=== PATIENT | female | born 1965 | race Caucasian/White ===

== ENCOUNTER → 2017-10-26 | Outpatient (CLI) | payer OTHER ==
[~2017-10-26] MED LIST: ASPI325T PO; SERT-129 PO
--- NOTE | 2017-10-26 09:52 | RADRPT ---
EXAM DATE: 10/26/2017 9:48 AM EDT AGE/SEX: 52 years / Female INDICATIONS: Left hip pain, denies injury CLINICAL DATA: This is the patient's initial encounter. Patient reports that signs and symptoms have been present for > 1 year and indicates a pain score of 7/10. MEDICAL/SURGICAL HISTORY: Arthritis. None. COMPARISON: No prior [facility] exams available for comparison. FINDINGS: Bony structures are intact and in normal alignment. Joints are intact without dislocation. Joint spa ce narrowing and osteophyte formation of the hip joints. Osseous density is normal. Soft tissues are unremarkable. No radiopaque foreign bodies seen. CONCLUSION: 1. Moderate bilateral hip osteoarthritis. 2. No acute fracture or dislocation. Electronically signed by: Anselmo Corley MD 10/26/2017 9:51 AM EDT
--- NOTE | 2017-10-26 10:20 | RADRPT ---
EXAM DATE: 10/26/2017 9:51 AM EDT AGE/SEX: 52 years / Female INDICATIONS: Right hip pain, injury CLINICAL DATA: This is the patient's initial encounter. Patient reports that signs and symptoms have been present for > 1 year and indicates a pain score of 10/10. MEDICAL/SURGICAL HISTORY: None. None. COMPARISON: No prior [facility] exams available for comparison. FINDINGS: Views of the right hip demonstrates moderate/severe osteoarthritic changes of the femoral head and ac etabulum. Femoral neck intact. No fracture or dislocation CONCLUSION: Moderate to severe osteoarthritis. No fracture. Electronically signed by: Brooks Pritchard MD 10/26/2017 10:19 AM EDT
== END ==
LOC: HRAD 09:19
PROVIDERS: ATTEND Family Medicine
DX: M25.551 Pain in right hip (principal); M25.552 Pain in left hip
CPT/HCPCS: 73502

== ENCOUNTER 2017-11-08 00:01 | Emergency (ER) | payer OTHER ==
[~2017-11-08] VITALS: Ht 167.6 cm; Wt 100.0 kg
[2017-11-08 00:35] VITALS: BP 125/78; PULSE 86; RESP 16; TEMP 97.7; O2SAT 97
--- NOTE | 2017-11-08 01:29 | PD ---
HPI Chief Complaint: Abdominal Pain Time Seen by Provider: 00:54 Travel History International Travel<30 days: No Contact w/Intl Traveler<30days: No Traveled to known affect area: No History of Present Illness HPI The patient is a 52 year old female who presents to the [facility] emergency department with a history of pelvic pain that she reports began 2 years ago. The patient reports that the pain has been diagnosed as related to osteoarthritis in bilateral hips. She reports that she has been told that she needs bilateral hip replacements done, however she is too young according to the orthopedist to have the procedure done yet. She reports that it makes her feel like she has pain down and her lower abdomen. She attributes this pain to her ovaries. She has up until a month ago been on supplemental estrogen due to postmenopausal flushing and hot flashes, however a month ago her primary care physician discontinued this. She has not seen a diet technician registered for the last 2 years. Her last menstrual cycle was at 48 years of age. She denies having any vaginal discharge or vaginal bleeding. She denies having any nausea or vomiting. She reports having chronic diarrhea for years. She reports that she has had a colonoscopy done a couple of years ago that had 2 polyps, however no other acute abnormality. She has had diverticulitis one time in the past. She reports that she moves her bowels 4 times per day. She denies any change in the frequency recently. She denies having any blood in her stool. She denies having any dysuria, hematuria, urinary urgency, or frequency. On review of systems otherwise, the patient denies having any known recent fevers, cough or congestion, neck pain, chest pain, shortness of breath, or neurologic symptoms [facility] Past Medical History Narrative Medical The patient's past medical history is significant for chronic pelvis pain, osteoarthritis involving bilateral hips, anxiety disorder, peripheral neuropathy , chronic low back pain, migraine headaches Arthritis: Yes (bilateral) ?: Not Past Surgical History Narrative Surgical The patient's past surgical history is significant for left foot surgery, C- section 1. Section: Yes Social History Alcohol Use: Yes (3 times per week, one small bottle of wine each time) Tobacco Use: Yes (1ppd) Substance Use: No Allergies-Medications (Allergen,Severity, Reaction): Coded Allergies: No Known Allergies (Unverified Adverse Reaction, Unknown, 11/08/17) Reported Meds & Prescriptions Reported Meds & Active Scripts Active Reported Aspirin 325 Mg Tab (Aspirin) 325 Mg Tab 325 Mg PO DAILY Sertraline 100 mg (Sertraline HCl) 100 Mg Tab 1 Tab PO BID Narrative Medication The patient reports currently being on Nabumetone, gabapentin, BuSpar, Topamax, baclofen Review of Systems Except as stated in HPI: all other systems reviewed are Neg General / Constitutional: No: Fever Eyes: No: Visual changes HENT: No: Headaches Cardiovascular: No: Chest Pain or Discomfort Respiratory: No: Shortness of Breath Gastrointestinal: Positive: Diarrhea, Abdominal Pain, No: Nausea, Vomiting, Hematochezia, Indigestion, Loss of Appetite Genitourinary: Positive: Pelvic Pain, No: Urgency, Frequency, Dysuria, Discharge, Vaginal Bleeding Musculoskeletal: Positive: Arthralgias, Pain Skin: No Rash Neurologic: No: Weakness, Focal Abnormalities, Change in Mentation, Slurred Speech, Sensory Disturbance Psychiatric: No: Depression Endocrine: No: Polydipsia Hematologic/Lymphatic: No: Easy Bruising Physical Exam Narrative General: The patient is a well-developed well nourished female in no acute distress Head and Neck exam: Head is normocephalic atraumatic. Eyes: EOMI, pupils are equal round and reactive to light. Nose: Midline septum with pink mucous membranes Mouth: Dentition unremarkable. Moist mucus membranes. Posterior oropharynx is not erythematous. No tonsillar hypertrophy. Uvula midline. Airway patent. Neck: No palpable lymphadenopathy. No nuchal rigidity. No thyromegaly. Cardiovascular: Regular rate and rhythm without murmurs, gallops, or rubs. No pulse deficit to the extremities on simultaneous auscultation and palpation of her radial artery. Lungs: Clear to auscultation bilaterally. No wheezes, rhonchi, or rales. Abdomen: Soft, with tenderness on palpation in the left lower quadrant of the abdomen. No other tenderness on palpation of the other quadrants of the abdomen. No guarding, rebound, or rigidity. Normal bowel sounds are audible. No tenderness on palpation of McBurney's point. Negative Lindo sign. Extremities: No clubbing, cyanosis, or edema. 2+ pulses in all 4 extremities. No calf tenderness on palpation. Back: No spinous process tenderness to palpation. No costovertebral angle tenderness to palpation. Neurologic Exam: Grossly nonfocal. Skin Exam: No rash noted. Intact skin that is warm and dry. Data Data Last Documented VS Vital Signs Date Time Temp Pulse Resp B/P (MAP) Pulse Ox O2 Delivery O2 Flow Rate FiO2 11/08/17 00:35 97.7 86 16 125/78 (94) 97 Orders Orders Complete Blood Count With Diff (11/08/17 00:55) Comprehensive Metabolic Panel (11/08/17 00:55) C-Reactive Protein (Crp) (11/08/17 00:55) Lipase (11/08/17 00:55) Urinalysis - C+S If Indicated (11/08/17 00:55) Iv Access Insert/Monitor (11/08/17 00:55) Ecg Monitoring (11/08/17 00:55) Oximetry (11/08/17 00:55) Ed Urine Pregnancytest Poc (11/08/17 00:55) Ct Abd/Pel W Iv Contrast(Rout) (11/08/17 01:20) Sodium Chlorid 0.9% 500 Ml Inj (Ns 500 M (11/08/17 01:45) Ketorolac Inj (Toradol Inj) (11/08/17 01:45) Iohexol 350 Inj (Omnipaque 350 Inj) (11/08/17 02:26) Ciprofloxacin (Cipro) (11/08/17 03:15) Metronidazole (Flagyl) (11/08/17 03:15) Labs Laboratory Tests Test 11/08/17 01:27 11/08/17 01:37 White Blood Count 9.2 TH/MM3 Red Blood Count 3.84 MIL/MM3 Hemoglobin 13.0 GM/DL Hematocrit 37.6 % Mean Corpuscular Volume 97.9 FL Mean Corpuscular Hemoglobin 33.8 PG Mean Corpuscular Hemoglobin Concent 34.5 % Red Cell Distribution Width 13.5 % Platelet Count 153 TH/MM3 Mean Platelet Volume 10.4 FL Neutrophils (%) (Auto) 46.2 % Lymphocytes (%) (Auto) 42.5 % Monocytes (%) (Auto) 7.9 % Eosinophils (%) (Auto) 2.4 % Basophils (%) (Auto) 1.0 % Neutrophils # (Auto) 4.3 TH/MM3 Lymphocytes # (Auto) 3.9 TH/MM3 Monocytes # (Auto) 0.7 TH/MM3 Eosinophils # (Auto) 0.2 TH/MM3 Basophils # (Auto) 0.1 TH/MM3 CBC Comment DIFF FINAL Differential Comment Blood Urea Nitrogen 8 MG/DL Creatinine 0.63 MG/DL Random Glucose 93 MG/DL Total Protein 6.9 GM/DL Albumin 3.5 GM/DL Calcium Level 8.4 MG/DL Alkaline Phosphatase 81 U/L Aspartate Amino Transf (AST/SGOT) 16 U/L Alanine Aminotransferase (ALT/SGPT) 23 U/L Total Bilirubin 0.1 MG/DL Sodium Level 140 MEQ/L Potassium Level 4.0 MEQ/L Chloride Level 107 MEQ/L Carbon Dioxide Level 21.5 MEQ/L Anion Gap 12 MEQ/L Estimat Glomerular Filtration Rate 99 ML/MIN C-Reactive Protein 0.65 MG/DL Lipase 81 U/L Urine Color LIGHT-YELLOW Urine Turbidity CLEAR Urine pH 5.0 Urine Specific [place] 1.004 Urine Protein NEG mg/dL Urine Glucose (UA) NEG mg/dL Urine Ketones NEG mg/dL Urine Occult Blood NEG Urine Nitrite NEG Urine Bilirubin NEG Urine Urobilinogen LESS THAN 2.0 MG/DL Urine Leukocyte Esterase NEG Urine Squamous Epithelial Cells <1 /hpf Microscopic Urinalysis Comment CULT NOT INDICATED MDM Medical Decision Making Medical Screen Exam Complete: Yes Emergency Medical Condition: Yes Medical Record Reviewed: Yes Differential Diagnosis Exacerbation of chronic pelvic pain related to a gynecologic process, versus referred pain from arthritis, versus diverticulitis, versus colitis, versus constipation Narrative Course During the course of the patient's emergency department visit, the patient's history, examination, and differential diagnosis were reviewed with the patient. The patient was placed on a cardiac exercise physiologist with oximetry and frequent blood pressure monitoring. The patient had IV access obtained and blood work sent for analysis. The patient was initially provided normal saline 500 mL bolus 1, Toradol 15 mg IV. The patient's laboratory studies were reviewed and remarkable for a CBC that is within normal limits, CMP is remarkable for calcium of 8.4, total bilirubin 0.1 , C-reactive protein 0.65, lipase 81, urinalysis within normal limits. Radiology studies were reviewed and remarkable for Last Impressions Abdomen/Pelvis CT 11/08/17 0120 Signed Impressions: CONCLUSION: 1. Colonic diverticulosis. Possible mild sigmoid colon acute diverticulitis. N o evidence of abscess or free air. 2. Bilateral hip osteoarthritic findings. The patient was given ciprofloxacin 500 mg p.o. 1, Flagyl 500 mg p.o. 1. Regarding the patient's chronic pelvic pain I recommended that she follow-up with a diet technician registered as she has not seen one for the last 2 years and has been on estrogen therapy up until a month ago. She is given the name of the diet technician registered conference organizer for follow-up, Dr. Dawson. She was instructed to call in the morning for an appointment for follow-up. I suspect that the patient's pelvic pain being worse is related to the patient's mild diverticulitis noted on CT. The patient will be continued on a complete course of antibiotic. The patient is resting comfortably and feels better, is alert and in no distress. The patient's results and examination findings were discussed with the patient. The repeat examination is unremarkable and benign. The history, exam, diagnostic testing, and current condition do not suggest any significant pathology to warrant further testing, continued ED treatment, admission, or surgical evaluation at this point. The vital signs have been stable. The patient does not have uncontrollable pain, intractable vomiting, or other significant symptoms. The patient's condition is stable and appropriate for discharge. The patient will pursue further outpatient evaluation with a primary care physician or other designated or consulting physician as indicated in the discharge instructions. The patient is instructed to report back to the emergency department immediately for reexamination in the mean time if she develops any new or worsening signs or symptoms. The patient expressed understanding and was agreeable with this plan. Diagnosis Primary Impression: Diverticulitis Additional Impressions: Arthritis of both hips Chronic pelvic pain in female Referrals: Estephania Dawson MD call for appointment Patient Instructions: Arthritis (ED), Diverticulitis (ED), General Instructions , Pelvic Pain in Women (ED) Med/Other Pt SpecificInfo: Prescription(s) given Scripts Metronidazole (Flagyl) 500 Mg Tab 500 MG PO TID for Infection, #20 TAB 0 Refills Prov: Sona Booker MD 11/08/17 Ciprofloxacin (Cipro) 500 Mg Tab 500 MG PO BID for Infection, #19 TAB 0 Refills Prov: Sona Booker MD 11/08/17 Disposition: 01 DISCHARGE HOME Condition: Stable Sona Booker MD Nov 08, 2017 01:29
[2017-11-08 01:42] LABS: AUTOMATED NEUTROPHIL # 4.3 TH/MM3 (1.8-7.7); BASOPHIL # 0.1 TH/MM3 (0-0.2); EOSINOPHIL # 0.2 TH/MM3 (0-0.4); EOSINOPHIL % 2.4 % (0.0-4.0); HEMATOCRIT 37.6 % (35.0-46.0); LYMPH % 42.5 % (9.0-44.0); LYMPHOCYTE # 3.9 TH/MM3 (1.0-4.8); MEAN CELL VOLUME 97.9 FL (80.0-100.0); MEAN CORPUSCULAR HEMOGLOBIN 33.8 PG (27.0-34.0); MEAN CORPUSCULAR HGB CONC 34.5 % (32.0-36.0); MEAN PLATELET VOLUME 10.4 FL (7.0-11.0); MONO % 7.9 % (0.0-8.0); MONOCYTE # 0.7 TH/MM3 (0-0.9); NEUT % 46.2 % (16.0-70.0); PLATELET COUNT 153 TH/MM3 (150-450); RED BLOOD COUNT 3.84 MIL/MM3 (4.00-5.30); RED CELL DISTRIBUTION WIDTH 13.5 % (11.6-17.2); WHITE BLOOD COUNT 9.2 TH/MM3 (4.0-11.0)
[2017-11-08] MEDS ORDERED: KETOROLAC TROMETHAMINE 30 MG/ML (IVP) VIAL IV PUSH ONE (01:45)
[2017-11-08] MEDS ORDERED: SODIUM CHLORID 0.9% 500 ML INJ 500 ML IV ONE (01:45)
[2017-11-08 01:50] LABS: BILIRUBIN, URINE NEG (NEG); BLOOD, URINE NEG (NEG); GLUCOSE,URINE NEG (NEG); KETONE, URINE NEG (NEG); NITRITE,URINE NEG (NEG); SQUAMOUS EPITHELIAL CELL URINE <1 /hpf (0-5); URINE COLOR LIGHT-YELLOW (YELLW/STRAW); URINE LEUKOCYTE ESTERASE NEG (NEG)
[2017-11-08 01:56] LABS: ALBUMIN 3.5 GM/DL (3.4-5.0); ALT (GPT) 23 U/L (10-53); AST (GOT) 16 U/L (15-37); BICARBONATE 21.5 MEQ/L (21.0-32.0); BLOOD UREA NITROGEN 8 MG/DL (7-18); CALCIUM 8.4 MG/DL (8.5-10.1); CHLORIDE 107 MEQ/L (98-107); CREATININE 0.63 MG/DL (0.50-1.00); GLOMERULAR FILTRATION RATE 99 ML/MIN (>89); GLUCOSE,RANDOM 93 MG/DL (74-106); SODIUM (NA) 140 MEQ/L (136-145)
[2017-11-08 01:57] LABS: ALKALINE PHOSPHATASE 81 U/L (45-117); C-REACTIVE PROTEIN 0.65 MG/DL (0.00-0.30); TOTAL BILIRUBIN ADULT 0.1 MG/DL (0.2-1.0); TOTAL PROTEIN 6.9 GM/DL (6.4-8.2)
[2017-11-08] MEDS ORDERED: IOHEXOL 350 MG/ML 10 ML VIAL (for RAD DIAG) IVCONTRAST ONE (02:26)
--- NOTE | 2017-11-08 02:46 | RADRPT ---
EXAM DATE: 11/08/2017 2:25 AM EDT AGE/SEX: 52 years / Female INDICATIONS: Lower abdominal pain. CLINICAL DATA: This is the patient's initial encounter. Patient reports that signs and symptoms have been present for 1 day and indicates a pain score of 7/10. MEDICAL/SURGICAL HISTORY: None. None. ORAL CONTRAST: No oral contrast ingested. RADIATION DOSE: 15.61 CTDI (mGy) COMPARISON: No prior exams available for comparison. TECHNIQUE: Multiple contiguous axial images were obtained through the abdomen and pelvis following b olus infusion of 100 ml Omnipaque 350 (iohexol) nonionic water-soluble contrast as a single exam do se. No oral contrast ingested. Using automated exposure control and adjustment of the mA and/or kV a ccording to patient size, the radiation dose was kept as low as reasonably achievable to obtain optim al diagnostic quality images. FINDINGS: Lower Lungs: Mild atelectasis in the anterior left lung base. Liver: The liver has a homogeneous density without space-occupying lesion. There is no dilation of th e biliary tree. Spleen: Homogeneous density without enlargement. Pancreas: Unremarkable without mass or calcification. Kidneys: Normal in size and shape. No evidence of mass or hydronephrosis. Adrenal Glands: Unremarkable. Aorta: The aorta and proximal iliac vessels are grossly unremarkable without aneurysmal dilation. Bowel/Mesentery: No evidence of bowel dilatation. No free air or free fluid. Appendix within normal limits. Multiple colonic diverticula. Mild wall thickening and minimal stranding opacity at the mid s igmoid colon indicating possible mild diverticulitis. Abdominal Wall: Intact. Retroperitoneum: No evidence of adenopathy in the retrocrural, para-aortic, or deep pelvic regions. Bladder: Contours are smooth. Reproductive Organs: No abnormal masses or calcifications seen. Inguinal: The inguinal region is unremarkable without evidence of adenopathy. Bony Structures: Bilateral hip osteoarthritic findings right greater than left. CONCLUSION: 1. Colonic diverticulosis. Possible mild sigmoid colon acute diverticulitis. No evidence of abscess or free air. 2. Bilateral hip osteoarthritic findings. Electronically signed by: Shola Dunham MD 11/08/2017 2:45 AM EDT
[2017-11-08] MEDS ORDERED: metroNIDAZOLE 500 MG TAB PO ONE (03:15)
[2017-11-08] MEDS ORDERED: CIPROFLOXACIN 500 MG TAB PO ONE (03:15)
[2017-11-08] MEDS ORDERED: CIPR-9 PO (03:28)
[2017-11-08] MEDS ORDERED: METR-1 PO (03:28)
== END 2017-11-08 03:53 | disposition home or self-care (01) ==
LOC: NEPE 00:01
DX: K57.30 Diverticulosis of large intestine without perforation or abscess without bleeding (principal); R10.2 Pelvic and perineal pain; G89.29 Other chronic pain; M16.0 Bilateral primary osteoarthritis of hip; Z72.0 Tobacco use
CPT/HCPCS: 74177; 80053; 81001; 83690; 84703; 85025; 86140; 96361; 96374; 99284; J1885; J7040; Q9967